=== PATIENT | female | born 1985 | race Caucasian/White ===

== ENCOUNTER 2020-10-28 09:32 | Outpatient (CLI) | payer BC, SELFPAY ==
[2020-10-28 10:49] LABS: Basophils # 0.1 10^3/uL (0.0-0.1); Basophils % 0.9 %; Eosinophils # 0.1 10^3/uL (0.0-0.8); Eosinophils % 1.6 %; Hematocrit 40.2 % (37.0-47.0); Hemoglobin 12.4 g/dL (11.5-15.3); Lymphocytes # 2.1 10^3/uL (0.8-4.8); Lymphocytes % 28.2 %; Mean Corpuscular HGB Conc 30.8 g/dL (30.0-36.0); Mean Corpuscular Hemoglobin 23.8 pg (28.0-34.0); Mean Platelet Volume 10.3 fL (7.4-10.4); Monocytes # 0.5 10^3/uL (0.2-0.9); Monocytes % 6.9 %; Neutrophils # 4.62 10^3/uL (1.8-7.7); Neutrophils % 62.1 %; Nucleated Red Blood Cells % 0 %; Platelet Count 359 10^3/cmm (130-400); Red Blood Count 5.22 10^6/uL (4.1-5.3); Red Cell Distribution Width 15.6 % (12.1-15.1); White Blood Count 7.4 10^3/uL (4.0-10.0)
--- NOTE | 2020-10-30 17:37 | ONC CON_ITS ---
Dr. Bains New Patient Note Patient: Lamar Funes Unit #: [id number]: 1985 Dicatated By: Agustín Bains M.D.Date of Visit: Oct 28, 2020 Onc MED New Patient/Consult Referring Physician: Dr. Shabbir Diamond M.D. History of Present Illness: Ms. Lamar Funes, is a 34-year-old female with no significant past medical history went to see her PMD for routine follow-up and prescription refill in June 2020, and her labs done on July 05, 2020 showed white blood count 8.8 hemoglobin 10.2 g hematocrit 32.6 platelets 366,000 and MCV 64.5 and anemia work-up showed ferritin was 13 iron saturation 51, total iron 168 TIBC 327 patient was started on oral iron and her repeat labs done on October 07, 2020 shows white blood count 7.1 hemoglobin 10.8 hematocrit 34.7 platelets 298,000 MCV 72.7 and iron saturation 50%, TIBC 275 iron 137 and ferritin was 15, patient was referred to hematology clinic for persistent iron deficiency anemia Patient denies any melena hematochezia but recently she noted fresh blood per rectum on 3 occasions. Patient said her menses are normal in amount and duration usually last 5 days sometimes 6 to 7 days. Denies any history of anemia prior to this, denies any history of EGD or colonoscopy done in the past, denies any history of blood transfusion. Patient denies any jaundice, denies any hemoptysis or hematemesis, denies any night sweats, denies any recurrent fevers, denies any weight loss, denies any chest pain or palpitation, denies any lightheadedness or dizziness. Tolerating oral iron well Past Medical History: Ms. Funes's medical history consists of benign neoplasm of skin of trunk, hypertension, and temporomandibular joint disorder. Past Surgical History: Ms. Funes's surgical/procedural history consists of myringotomy and wisdom teeth removal. Medications: Claritin 1 Tablet (of 10 mg) Oral daily, Ferrous Sulfate (325 (65 fe) mg) Tablet Oral Take as Directed, Flonase 2 [place](s) (of 50 mcg/act) Suspension Nasal daily, Singulair 1 Tablet (of 10 mg) Oral daily Allergies: No Known Allergies. Social History: Ms. Funes is single. Ms. Funes has never smoked. She has no history of drinking. Ms. Funes reports the following support systems: lives with spouse, significant other, family, or friends. Family History: There is no documented family history. Review Of Symptoms: Constitutional - Appetite is good and weight is stable. No fever, night sweats, or hot flashes. ECOG score is, ENMT - No sinus congestion/drainage. No mouth sores. No sore throat or difficulty swallowing, Endocrine - , Hematologic/Lymphatic - No abnormal bruising or bleeding, Respiratory - No shortness of breath. No cough. No pleuritic pain or hemoptysis, Cardiovascular - No angina pain. No palpitations, Gastrointestinal - No nausea or vomiting. No heartburn or acid reflux. No diarrhea or constipation. Positve for blood in stools, Genitourinary (F) - No dysuria or hematuria. No urinary frequency. No urgency or incontinence, Musculoskeletal - No joint or bone pain, Neurologic - No headache or dizziness. No numbness or tingling. No other focal neurologic symptoms, Psychiatric - No anxiety or depression. No insomnia. Vital Signs: Most recent vitals are not available for this patient. Performance Status: 0 - Fully active, able to carry on all predisease activities without restrictions. (ECOG) Physical Examination: ENMT - No mouth sores, no thrush, no jaundice, Respiratory - Lungs are clear to auscultation, Cardiovascular - Regular rate and rhythm of heart, Abdomen - Soft, bowel sounds present, Extremities - No visible edema or rash. Lab/Imaging: Most recent lab results are not available for this patient. Impression: Iron deficiency anemia etiology could be multifactorial including chronic blood loss due to menstrual periods, or GI tract or iron malabsorption. Or noncompliance Plan: Discussed with patient regarding her labs white blood count 7.4 hemoglobin 12.4 hematocrit 40.2 platelets 359,000 MCV 77 Clinically, patient is doing well, denies any new signs symptoms, her follow-up labs shows excellent response to oral iron with normalization of hemoglobin/anemia. Patient tolerating oral iron well as per patient last week her oral iron supplement was reduced to twice a week from daily, but will consider daily iron supplement and she will return to clinic in 1 month with CBC and iron studies Patient was also advised for colonoscopy/EGD as she has recent history of fresh blood per rectum on couple of occasions. Patient preferred to go to [place] for EGD/colonoscopy. , Considering her weight, patient may have underlying sleep apnea, may benefit from sleep study. Signed By: Agustín Bains M.D. <<Signature on File>>
== END 2020-10-28 09:33 | disposition home or self-care (01) ==
PROVIDERS: PCP Internal Medicine; Visit Provider Internal Medicine Hematology & Oncology
DX: D50.9 Iron deficiency anemia, unspecified (principal); K92.1 Melena
CPT/HCPCS: 36415; 85025; 99204

== ENCOUNTER 2020-12-03 09:03 | Outpatient (CLI) | payer BC, SELFPAY ==
[2020-12-03 09:29] LABS: Basophils # 0.1 10^3/uL (0.0-0.1); Basophils % 0.9 %; Eosinophils # 0.1 10^3/uL (0.0-0.8); Eosinophils % 1.1 %; Hematocrit 40.1 % (37.0-47.0); Hemoglobin 12.5 g/dL (11.5-15.3); Mean Corpuscular HGB Conc 31.2 g/dL (30.0-36.0); Mean Corpuscular Hemoglobin 24.5 pg (28.0-34.0); Mean Corpuscular Volume 78.5 fL (81-99); Mean Platelet Volume 9.4 fL (7.4-10.4); Monocytes # 0.6 10^3/uL (0.2-0.9); Monocytes % 6.1 %; Neutrophils # 6.42 10^3/uL (1.8-7.7); Neutrophils % 69.5 %; Nucleated Red Blood Cells % 0 %; Platelet Count 299 10^3/cmm (130-400); Red Blood Count 5.11 10^6/uL (4.1-5.3); Red Cell Distribution Width 14.7 % (12.1-15.1); White Blood Count 9.2 10^3/uL (4.0-10.0)
[2020-12-03 09:57] LABS: Ferritin 28 ng/mL (15-150); Iron 38 ug/dL (37-145); Percent Saturation 14.1 % (20-50); Total Iron Binding Capacity 268 mcg/dl; Unsaturated Iron Binding 230 ug/dL (112-347)
[2020-12-03 10:13] LABS: Folate Level 11.4 ng/mL (4.8-37.3)
--- NOTE | 2020-12-03 13:42 | ONC FU_ITS ---
Dr. Bains follow up note Patient: Lamar Funes Unit #: [id number]: 1985 Dicatated By: Agustín Bains M.D.Date of Visit:Dec 03, 2020 Onc Med Follow-up/Prog Note History of Present Illness: Ms. Lamar Funes, is a 34-year-old female with no significant past medical history went to see her PMD for routine follow-up and prescription refill in June 2020, and her labs done on July 05, 2020 showed white blood count 8.8 hemoglobin 10.2 g hematocrit 32.6 platelets 366,000 and MCV 64.5 and anemia work-up showed ferritin was 13 iron saturation 51, total iron 168 TIBC 327 patient was started on oral iron and her repeat labs done on October 07, 2020 shows white blood count 7.1 hemoglobin 10.8 hematocrit 34.7 platelets 298,000 MCV 72.7 and iron saturation 50%, TIBC 275 iron 137 and ferritin was 15, patient was referred to hematology clinic for persistent iron deficiency anemia Patient denies any melena hematochezia but recently she noted fresh blood per rectum on 3 occasions. Patient said her menses are normal in amount and duration usually last 5 days sometimes 6 to 7 days. Denies any history of anemia prior to this, denies any history of EGD or colonoscopy done in the past, denies any history of blood transfusion. Underwent EGD and colonoscopy on November 26, 2020 showed no esophagitis or esophageal stricture no abnormality seen in stomach and duodenum but biopsies were obtained to rule out H. pylori and atrophic gastritis as well as celiac disease and report is pending whereas colonoscopy showed no abnormality Tolerating oral iron well Came for follow-up, denies any specific complaints, no fever chills, no nausea or vomiting, no diarrhea or constipation, tolerating oral iron well as per patient she did not take her oral iron supplement for 5 days prior to her EGD/colonoscopy which was done on November 26, 2020. Otherwise tolerating oral iron well. No abdominal pain no constipation no excessive flatulence., Energetic, no palpitation or chest pain or jaundice or shortness of breath Medications: Claritin 1 Tablet (of 10 mg) Oral daily, Ferrous Sulfate (325 (65 fe) mg) Tablet Oral Take as Directed, Flonase 2 [place](s) (of 50 mcg/act) Suspension Nasal daily, Singulair 1 Tablet (of 10 mg) Oral daily Allergies: No Known Allergies. Review of Systems: Review of Systems is not available for this patient. Vital Signs: Performed on Dec 03, 2020 10:30 Height - 68 in Weight - 271.2 lbs (HIGH) BSA - 2.33 sq.m BMI - 41.24 (HIGH) Temperature - 98.1 F (LOW) Pulse - 86 /min Respiration - 16 /min BP - 150/93 mm(hg) (HIGH) O2 Sat - 100 % Pain - 0 Performance Status: 0 - Fully active, able to carry on all predisease activities without restrictions. (ECOG) Physical Examination: ENMT - No mouth sores, no thrush, no jaundice, Respiratory - Lungs are clear to auscultation, Cardiovascular - Regular rate and rhythm of heart, Abdomen - Soft, bowel sounds present, Extremities - No visible edema. Lab/Imaging: Test performed on Oct 28, 2020 09:50 WBC 7.4 10 3/uL RBC 5.22 10 6/uL HGB 12.4 g/dL HCT 40.2 % MCV 77.0 fL MCH 23.8 pg MCHC 30.8 g/dL RDW 15.6 % Platelet Count 359 10 3/cmm MPV 10.3 fL Neutrophils 4.62 10 3/uL Lymphocytes 2.1 10 3/uL Monocytes 0.5 10 3/uL Eosinophils 0.1 10 3/uL Basophils 0.1 10 3/uL Neutrophil % 62.1 % Lymphocyte % 28.2 % Monocyte % 6.9 % Eosinophil % 1.6 % Basophils % 0.9 % NRBC % 0 % Impression: Iron deficiency anemia etiology could be multifactorial including chronic blood loss due to menstrual periods, or GI tract or iron malabsorption. Or noncompliance Tolerating oral iron well EGD/colonoscopy done on November 26, 2020 showed no abnormality or source of blood loss Plan: .Discussed with patient regarding her labs white blood count 9.2 hemoglobin 12.5 hematocrit 40.1 platelets 299,000 MCV 78.5 iron saturation 14.1%, ferritin 28, folic acid 11.4, iron 38 TIBC 268 Clinically, patient is doing well, feeling more energetic, tolerating oral iron well, recently underwent EGD/colonoscopy which showed no abnormality and no evidence of bleeding, biopsies were taken to rule out H. pylori/atrophic gastritis/celiac and report is pending Follow-up labs shows normalization of anemia but persistent iron deficiency so we will increase her oral iron supplement to twice a day and then she will return to clinic in 1 month with CBC, iron studies and B12 level. Signed By: Agustín Bains M.D. <<Signature on File>>
== END 2020-12-03 09:04 | disposition home or self-care (01) ==
LOC: ONCMED 09:04
PROVIDERS: PCP Internal Medicine; Visit Provider Internal Medicine Hematology & Oncology
DX: D50.9 Iron deficiency anemia, unspecified (principal)
CPT/HCPCS: 36415; 82728; 82746; 83540; 83550; 85025; G0463

== ENCOUNTER 2021-01-09 11:48 | Outpatient (CLI) | payer BC, SELFPAY ==
[2021-01-09 12:12] LABS: Basophils # 0.1 10^3/uL (0.0-0.1); Basophils % 0.6 %; Eosinophils # 0.2 10^3/uL (0.0-0.8); Eosinophils % 1.5 %; Hematocrit 37.7 % (37.0-47.0); Mean Corpuscular HGB Conc 31.8 g/dL (30.0-36.0); Mean Corpuscular Hemoglobin 25.2 pg (28.0-34.0); Mean Corpuscular Volume 79.2 fL (81-99); Mean Platelet Volume 9.5 fL (7.4-10.4); Monocytes # 0.7 10^3/uL (0.2-0.9); Monocytes % 6.5 %; Neutrophils # 7.43 10^3/uL (1.8-7.7); Neutrophils % 72.1 %; Nucleated Red Blood Cells % 0 %; Platelet Count 290 10^3/cmm (130-400); Red Blood Count 4.76 10^6/uL (4.1-5.3); Red Cell Distribution Width 14.4 % (12.1-15.1); White Blood Count 10.3 10^3/uL (4.0-10.0)
[2021-01-09 12:50] LABS: Ferritin 28 ng/mL (15-150); Iron 35 ug/dL (37-145); Percent Saturation 14.2 % (20-50); Total Iron Binding Capacity 246 mcg/dl; Unsaturated Iron Binding 211 ug/dL (112-347)
[2021-01-09 13:06] LABS: Vitamin B12 528 pg/mL (232-1245)
--- NOTE | 2021-01-09 13:54 | ONC FU_ITS ---
Dr. Bains follow up note Patient: Lamar Funes Unit #: [id number]: 1985 Dicatated By: Agustín Bains M.D.Date of Visit:Jan 09, 2021 Onc Med Follow-up/Prog Note History of Present Illness: Ms. Lamar Funes, is a 35-year-old female with no significant past medical history went to see her PMD for routine follow-up and prescription refill in June 2020, and her labs done on July 05, 2020 showed white blood count 8.8 hemoglobin 10.2 g hematocrit 32.6 platelets 366,000 and MCV 64.5 and anemia work-up showed ferritin was 13 iron saturation 51, total iron 168 TIBC 327 patient was started on oral iron and her repeat labs done on October 07, 2020 shows white blood count 7.1 hemoglobin 10.8 hematocrit 34.7 platelets 298,000 MCV 72.7 and iron saturation 50%, TIBC 275 iron 137 and ferritin was 15, patient was referred to hematology clinic for persistent iron deficiency anemia Patient denies any melena hematochezia but recently she noted fresh blood per rectum on 3 occasions. Patient said her menses are normal in amount and duration usually last 5 days sometimes 6 to 7 days. Denies any history of anemia prior to this, denies any history of EGD or colonoscopy done in the past, denies any history of blood transfusion. Underwent EGD and colonoscopy on November 26, 2020 showed no esophagitis or esophageal stricture no abnormality seen in stomach and duodenum but biopsies were obtained to rule out H. pylori and atrophic gastritis as well as celiac disease Were negative whereas colonoscopy showed no abnormality Tolerating oral iron well Came for follow-up, denies any specific complaints, no chills, no nausea or vomiting, no diarrhea constipation, no melena or hematochezia but darker stools, tolerating oral iron well. Medications: Claritin 1 Tablet (of 10 mg) Oral daily, Ferrous Sulfate (325 (65 fe) mg) Tablet Oral Take as Directed, Flonase 2 [place](s) (of 50 mcg/act) Suspension Nasal daily, Singulair 1 Tablet (of 10 mg) Oral daily Allergies: No Known Allergies. Review of Systems: Review of Systems is not available for this patient. Vital Signs: Performed on Jan 09, 2021 13:37 Height - 68.00 in Weight - 276.8 lbs (HIGH) BSA - 2.35 sq.m BMI - 42.09 (HIGH) Temperature - 97.7 F (LOW) Pulse - 81 /min Respiration - 18 /min BP - 143/90 mm(hg) (HIGH) O2 Sat - 100 % Pain - 1 Fatigue - 0 Performance Status: 0 - Fully active, able to carry on all predisease activities without restrictions. (ECOG) Physical Examination: ENMT - No mouth sores, no thrush, no jaundice, Respiratory - Lungs are clear to auscultation, Cardiovascular - Regular rate and rhythm of heart, Abdomen - Soft, bowel sounds present, Extremities - No visible edema. Lab/Imaging: Test performed on Dec 03, 2020 09:15 Ferritin 28 ng/mL Folate, Serum 11.4 ng/mL Iron 38 mcg/dL Iron Binding Capacity (TIBC) 268 mcg/dl % Iron Saturation 14.1 % UIBC 230 mcg/dL WBC 9.2 10 3/uL RBC 5.11 10 6/uL HGB 12.5 g/dL HCT 40.1 % MCV 78.5 fL MCH 24.5 pg MCHC 31.2 g/dL RDW 14.7 % Platelet Count 299 10 3/cmm MPV 9.4 fL Neutrophils 6.42 10 3/uL Lymphocytes 2.0 10 3/uL Monocytes 0.6 10 3/uL Eosinophils 0.1 10 3/uL Basophils 0.1 10 3/uL Neutrophil % 69.5 % Lymphocyte % 22.0 % Monocyte % 6.1 % Eosinophil % 1.1 % Basophils % 0.9 % NRBC % 0 % Impression: Iron deficiency anemia etiology could be multifactorial including chronic blood loss due to menstrual periods, or GI tract or iron malabsorption. Or noncompliance Tolerating oral iron well EGD/colonoscopy done on November 26, 2020 showed no abnormality or source of blood loss Plan: Discussed with patient regarding her labs white blood count 10.3 hemoglobin 12 hematocrit 37.7 MCV 79.2 platelets 290,000 iron saturation 14.2% ferritin 28 iron 35, no change when compared with iron studies done on December 03, 2020 Clinically, patient is doing well with no new signs symptoms no evidence of gross bleeding, tolerating oral iron well except with excessive gas. Her oral iron dose was increased to twice a day last month as her follow-up labs continue to show low iron stores and the microcytosis with normal hemoglobin and as per patient she has been taking oral iron once full stomach, patient was advised to take oral iron with orange juice on empty stomach twice a day and then return to clinic in 2 months with CBC and iron studies and if it shows persistent iron deficiency then we may consider parenteral iron. Signed By: Agustín Bains M.D. <<Signature on File>>
== END 2021-01-09 11:49 | disposition home or self-care (01) ==
LOC: ONCMED 11:49
PROVIDERS: PCP Internal Medicine; Visit Provider Internal Medicine Hematology & Oncology
DX: D50.0 Iron deficiency anemia secondary to blood loss (chronic) (principal); K90.9 Intestinal malabsorption, unspecified; Z79.899 Other long term (current) drug therapy
CPT/HCPCS: 36415; 82607; 82728; 83540; 83550; 85025; G0463

== ENCOUNTER 2021-03-10 12:15 | Outpatient (CLI) | payer BC, SELFPAY ==
[2021-03-10 12:41] LABS: Basophils # 0.1 10^3/uL (0.0-0.1); Basophils % 0.9 %; Eosinophils # 0.1 10^3/uL (0.0-0.8); Eosinophils % 0.9 %; Hematocrit 40.3 % (37.0-47.0); Hemoglobin 12.8 g/dL (11.5-15.3); Lymphocytes # 2.7 10^3/uL (0.8-4.8); Lymphocytes % 20.9 %; Mean Corpuscular HGB Conc 31.8 g/dL (30.0-36.0); Mean Corpuscular Volume 81.7 fL (81-99); Mean Platelet Volume 9.7 fL (7.4-10.4); Monocytes # 0.9 10^3/uL (0.2-0.9); Monocytes % 7.1 %; Neutrophils # 8.89 10^3/uL (1.8-7.7); Neutrophils % 69.7 %; Nucleated Red Blood Cells % 0 %; Platelet Count 357 10^3/cmm (130-400); Red Blood Count 4.93 10^6/uL (4.1-5.3); Red Cell Distribution Width 13.5 % (12.1-15.1); White Blood Count 12.7 10^3/uL (4.0-10.0)
[2021-03-10 13:04] LABS: Ferritin 56 ng/mL (15-150); Iron 31 ug/dL (37-145); Percent Saturation 13.3 % (20-50); Total Iron Binding Capacity 232 mcg/dl; Unsaturated Iron Binding 201 ug/dL (112-347)
[2021-03-10 13:50] LABS: Folate Level 14.4 ng/mL (4.8-37.3)
--- NOTE | 2021-03-11 17:33 | ONC FU_ITS ---
Dr. Bains follow up note Patient: Lamar Funes Unit #: [id number]: 1985 Dicatated By: Agustín Bains M.D.Date of Visit:Mar 10, 2021 Onc Med Follow-up/Prog Note History of Present Illness: Ms. Lamar Funes, is a 35-year-old female with no significant past medical history went to see her PMD for routine follow-up and prescription refill in June 2020, and her labs done on July 05, 2020 showed white blood count 8.8 hemoglobin 10.2 g hematocrit 32.6 platelets 366,000 and MCV 64.5 and anemia work-up showed ferritin was 13 iron saturation 51, total iron 168 TIBC 327 patient was started on oral iron and her repeat labs done on October 07, 2020 shows white blood count 7.1 hemoglobin 10.8 hematocrit 34.7 platelets 298,000 MCV 72.7 and iron saturation 50%, TIBC 275 iron 137 and ferritin was 15, patient was referred to hematology clinic for persistent iron deficiency anemia Patient denies any melena hematochezia but recently she noted fresh blood per rectum on 3 occasions. Patient said her menses are normal in amount and duration usually last 5 days sometimes 6 to 7 days. Denies any history of anemia prior to this, denies any history of EGD or colonoscopy done in the past, denies any history of blood transfusion. Underwent EGD and colonoscopy on November 26, 2020 showed no esophagitis or esophageal stricture no abnormality seen in stomach and duodenum but biopsies were obtained to rule out H. pylori and atrophic gastritis as well as celiac disease and report is pending whereas colonoscopy showed no abnormality Tolerating oral iron well Came for follow-up, denies any specific complaints, no fever chills, no nausea or vomiting, no diarrhea constipation, tolerating oral iron well, no shortness of breath or palpitation Medications: Claritin 1 Tablet (of 10 mg) Oral daily, Ferrous Sulfate (325 (65 fe) mg) Tablet Oral Take as Directed, Flonase 2 [place](s) (of 50 mcg/act) Suspension Nasal daily, Singulair 1 Tablet (of 10 mg) Oral daily Allergies: No Known Allergies. Review of Systems: Review of Systems is not available for this patient. Vital Signs: Performed on Mar 10, 2021 14:07 Height - 68.00 in Weight - 277.6 lbs (HIGH) BSA - 2.35 sq.m BMI - 42.21 (HIGH) Temperature - 98.0 F (LOW) Pulse - 91 /min Respiration - 18 /min BP - 147/92 mm(hg) (HIGH) O2 Sat - 94 % (LOW) Pain - 2 Fatigue - 0 Performance Status: 0 - Fully active, able to carry on all predisease activities without restrictions. (ECOG) Physical Examination: ENMT - No mouth sores, no thrush, no jaundice, Respiratory - Lungs are clear to auscultation, Cardiovascular - Regular rate and rhythm of heart, Abdomen - Soft, bowel sounds present, Extremities - No visible edema. Lab/Imaging: Test performed on Dec 03, 2020 09:15 Ferritin 28 ng/mL Folate, Serum 11.4 ng/mL Iron 38 mcg/dL Iron Binding Capacity (TIBC) 268 mcg/dl % Iron Saturation 14.1 % UIBC 230 mcg/dL WBC 9.2 10 3/uL RBC 5.11 10 6/uL HGB 12.5 g/dL HCT 40.1 % MCV 78.5 fL MCH 24.5 pg MCHC 31.2 g/dL RDW 14.7 % Platelet Count 299 10 3/cmm MPV 9.4 fL Neutrophils 6.42 10 3/uL Lymphocytes 2.0 10 3/uL Monocytes 0.6 10 3/uL Eosinophils 0.1 10 3/uL Basophils 0.1 10 3/uL Neutrophil % 69.5 % Lymphocyte % 22.0 % Monocyte % 6.1 % Eosinophil % 1.1 % Basophils % 0.9 % NRBC % 0 % Impression: Iron deficiency anemia etiology could be multifactorial including chronic blood loss due to menstrual periods, or GI tract or iron malabsorption. Or noncompliance Tolerating oral iron well EGD/colonoscopy done on November 26, 2020 showed no abnormality or source of blood loss Plan: Discussed with patient regarding her labs white blood count 12.7 hemoglobin 12.8 g compared to 12 g previously hematocrit 40.3 platelets 357,000 CMP shows iron saturation 30.3% compared to 14 2% previously ferritin 56 compared to 28 previously and iron 31 compared to 35 previously Clinically, patient doing well, no new signs symptoms, tolerating oral iron well and her follow-up CBC shows further improvement in her hemoglobin, today it is 12.8 g compared to 12 g previously while her iron stores shows stable still on the low side of normal although ferritin has improved from 28 to 56, she will continue with oral iron and then return to clinic in 2 months with CBC and iron studies. Signed By: Agustín Bains M.D. <<Signature on File>>
== END 2021-03-10 12:16 | disposition home or self-care (01) ==
PROVIDERS: PCP Internal Medicine; Visit Provider Internal Medicine Hematology & Oncology
DX: D50.9 Iron deficiency anemia, unspecified (principal); N92.6 Irregular menstruation, unspecified; K90.9 Intestinal malabsorption, unspecified; Z79.899 Other long term (current) drug therapy
CPT/HCPCS: 82728; 82746; 83540; 83550; 85025; 99214

== ENCOUNTER 2021-05-08 12:54 | Outpatient (CLI) | payer BC, SELFPAY ==
[2021-05-08 13:50] LABS: Basophils # 0.1 10^3/uL (0.0-0.1); Basophils % 0.5 %; Eosinophils # 0.1 10^3/uL (0.0-0.8); Eosinophils % 0.7 %; Hematocrit 38.4 % (37.0-47.0); Hemoglobin 12.4 g/dL (11.5-15.3); Lymphocytes # 2.3 10^3/uL (0.8-4.8); Lymphocytes % 19.6 %; Mean Corpuscular HGB Conc 32.3 g/dL (30.0-36.0); Mean Corpuscular Hemoglobin 26.6 pg (28.0-34.0); Mean Corpuscular Volume 82.4 fL (81-99); Mean Platelet Volume 10.2 fL (7.4-10.4); Monocytes # 0.9 10^3/uL (0.2-0.9); Monocytes % 7.7 %; Neutrophils # 8.27 10^3/uL (1.8-7.7); Neutrophils % 71.2 %; Nucleated Red Blood Cells % 0 %; Platelet Count 289 10^3/cmm (130-400); Red Blood Count 4.66 10^6/uL (4.1-5.3); Red Cell Distribution Width 13.2 % (12.1-15.1); White Blood Count 11.6 10^3/uL (4.0-10.0)
[2021-05-08 15:02] LABS: Ferritin 54 ng/mL (15-150); Iron 30 ug/dL (37-145); Percent Saturation 13.6 % (20-50); Total Iron Binding Capacity 220 mcg/dl; Unsaturated Iron Binding 190 ug/dL (112-347)
--- NOTE | 2021-05-08 15:15 | ONC FU_ITS ---
Dr. Bains follow up note Patient: Lamar Funes Unit #: [id number]: 1985 Dicatated By: Agustín Bains M.D.Date of Visit:May 08, 2021 Onc Med Follow-up/Prog Note History of Present Illness: Ms. Lamar Funes, is a 35-year-old female with no significant past medical history went to see her PMD for routine follow-up and prescription refill in June 2020, and her labs done on July 05, 2020 showed white blood count 8.8 hemoglobin 10.2 g hematocrit 32.6 platelets 366,000 and MCV 64.5 and anemia work-up showed ferritin was 13 iron saturation 51, total iron 168 TIBC 327 patient was started on oral iron and her repeat labs done on October 07, 2020 shows white blood count 7.1 hemoglobin 10.8 hematocrit 34.7 platelets 298,000 MCV 72.7 and iron saturation 50%, TIBC 275 iron 137 and ferritin was 15, patient was referred to hematology clinic for persistent iron deficiency anemia Patient denies any melena hematochezia but recently she noted fresh blood per rectum on 3 occasions. Patient said her menses are normal in amount and duration usually last 5 days sometimes 6 to 7 days. Denies any history of anemia prior to this, denies any history of EGD or colonoscopy done in the past, denies any history of blood transfusion. Underwent EGD and colonoscopy on November 26, 2020 showed no esophagitis or esophageal stricture no abnormality seen in stomach and duodenum but biopsies were obtained to rule out H. pylori and atrophic gastritis as well as celiac disease and report is pending whereas colonoscopy showed no abnormality Tolerating oral iron well Came for follow-up, denies any specific complaints, no weakness or fatigue, no palpitation no fever chills, no nausea or vomiting, no diarrhea or constipation, no melena hematochezia, no hemoptysis hematemesis, no nosebleed or gum bleed, no hematuria, tolerating oral iron well Medications: Claritin 1 Tablet (of 10 mg) Oral daily, Ferrous Sulfate (325 (65 fe) mg) Tablet Oral Take as Directed, Flonase 2 [place](s) (of 50 mcg/act) Suspension Nasal daily, Singulair 1 Tablet (of 10 mg) Oral daily Allergies: No Known Allergies. Review of Systems: Review of Systems is not available for this patient. Vital Signs: Vitals are not available for this patient. Performance Status: 0 - Fully active, able to carry on all predisease activities without restrictions. (ECOG) Physical Examination: ENMT - No mouth sores, no thrush, no jaundice, Respiratory - Lungs are clear to auscultation, Cardiovascular - Regular rate and rhythm of heart, Abdomen - Soft, bowel sounds present, Extremities - No visible edema. Lab/Imaging: Test performed on Dec 03, 2020 09:15 Ferritin 28 ng/mL Folate, Serum 11.4 ng/mL Iron 38 mcg/dL Iron Binding Capacity (TIBC) 268 mcg/dl % Iron Saturation 14.1 % UIBC 230 mcg/dL WBC 9.2 10 3/uL RBC 5.11 10 6/uL HGB 12.5 g/dL HCT 40.1 % MCV 78.5 fL MCH 24.5 pg MCHC 31.2 g/dL RDW 14.7 % Platelet Count 299 10 3/cmm MPV 9.4 fL Neutrophils 6.42 10 3/uL Lymphocytes 2.0 10 3/uL Monocytes 0.6 10 3/uL Eosinophils 0.1 10 3/uL Basophils 0.1 10 3/uL Neutrophil % 69.5 % Lymphocyte % 22.0 % Monocyte % 6.1 % Eosinophil % 1.1 % Basophils % 0.9 % NRBC % 0 % Impression: Iron deficiency anemia etiology could be multifactorial including chronic blood loss due to menstrual periods, or GI tract or iron malabsorption. Or noncompliance Tolerating oral iron well EGD/colonoscopy done on November 26, 2020 showed no abnormality or source of blood loss Plan: Discussed with patient regarding her labs white blood count 11.6 hemoglobin 12.4 g hematocrit 38.4 platelets 289,000 MCV 82.4 iron studies shows iron saturation 13.6% and iron 30, ferritin 54 compared to 13.3%/31/56 previously Clinically, patient doing well with no new signs symptoms her follow-up labs shows hemoglobin in normal range and iron stores on the lower side of normal, patient is on oral iron supplement 2 tablets a day, she was advised to continue with same,, there is a possibility she may have some element of malabsorption, so if there is a drop in her hemoglobin and no further improvement in her iron stores, will consider parenteral iron She return to clinic in 2 months with CBC and iron studies Signed By: Agustín Bains M.D. <<Signature on File>>
== END 2021-05-08 12:55 | disposition home or self-care (01) ==
LOC: ONCMED 12:59
PROVIDERS: PCP Internal Medicine; Visit Provider Internal Medicine Hematology & Oncology
DX: D50.0 Iron deficiency anemia secondary to blood loss (chronic) (principal); N92.6 Irregular menstruation, unspecified; Z79.899 Other long term (current) drug therapy
CPT/HCPCS: 36415; 82728; 83540; 83550; 85025; 99214

== ENCOUNTER 2021-07-24 14:17 | Outpatient (CLI) | payer BC, SELFPAY ==
[2021-07-24 15:17] LABS: Basophils # 0.1 10^3/uL (0.0-0.1); Basophils % 0.5 %; Eosinophils # 0.2 10^3/uL (0.0-0.8); Eosinophils % 1.4 %; Hematocrit 38.1 % (37.0-47.0); Hemoglobin 12.1 g/dL (11.5-15.3); Lymphocytes # 2.6 10^3/uL (0.8-4.8); Lymphocytes % 22.9 %; Mean Corpuscular HGB Conc 31.8 g/dL (30.0-36.0); Mean Corpuscular Hemoglobin 26.9 pg (28.0-34.0); Mean Corpuscular Volume 84.7 fl (81-99); Mean Platelet Volume 10.1 fL (7.4-10.4); Monocytes # 0.8 10^3/uL (0.2-0.9); Monocytes % 6.9 %; Neutrophils # 7.66 10^3/uL (1.8-7.7); Neutrophils % 67.9 %; Nucleated Red Blood Cells % 0 %; Platelet Count 298 10^3/cmm (130-400); Red Cell Distribution Width 13.1 % (12.1-15.1); White Blood Count 11.3 10^3/uL (4.0-10.0)
[2021-07-24 15:52] LABS: Ferritin 58 ng/mL (15-150); Iron 34 ug/dL (37-145); Percent Saturation 15.5 % (20-50); Total Iron Binding Capacity 219 mcg/dl; Unsaturated Iron Binding 185 ug/dL (112-347)
--- NOTE | 2021-07-25 13:50 | ONC FU_ITS ---
Dr. Bains follow up note Patient: Lamar Funes Unit #: [id number]: [id number] Dicatated By: Agustín Bains M.D.Date of Visit:Jul 24, 2021 Onc Med Follow-up/Prog Note History of Present Illness: Ms. Lamar Funes, is a 35-year-old female with no significant past medical history went to see her PMD for routine follow-up and prescription refill in June 2020, and her labs done on July 05, 2020 showed white blood count 8.8 hemoglobin 10.2 g hematocrit 32.6 platelets 366,000 and MCV 64.5 and anemia work-up showed ferritin was 13 iron saturation 51, total iron 168 TIBC 327 patient was started on oral iron and her repeat labs done on October 07, 2020 shows white blood count 7.1 hemoglobin 10.8 hematocrit 34.7 platelets 298,000 MCV 72.7 and iron saturation 50%, TIBC 275 iron 137 and ferritin was 15, patient was referred to hematology clinic for persistent iron deficiency anemia Patient denies any melena hematochezia but recently she noted fresh blood per rectum on 3 occasions. Patient said her menses are normal in amount and duration usually last 5 days sometimes 6 to 7 days. Denies any history of anemia prior to this, denies any history of EGD or colonoscopy done in the past, denies any history of blood transfusion. Underwent EGD and colonoscopy on November 26, 2020 showed no esophagitis or esophageal stricture no abnormality seen in stomach and duodenum but biopsies were obtained to rule out H. pylori and atrophic gastritis as well as celiac disease and report is pending whereas colonoscopy showed no abnormality Tolerating oral iron well Came for follow-up, denies any specific complaints, no fever chills, no nausea or vomiting, no diarrhea or constipation, tolerating oral iron well, patient says she is compliant with her iron supplements. Medications: Claritin 1 Tablet (of 10 mg) Oral daily, Ferrous Sulfate (325 (65 fe) mg) Tablet Oral Take as Directed, Flonase 2 [place](s) (of 50 mcg/act) Suspension Nasal daily, Singulair 1 Tablet (of 10 mg) Oral daily Allergies: No Known Allergies. Review of Systems: Review of Systems is not available for this patient. Vital Signs: Performed on Jul 24, 2021 16:06 Height - 68.00 in Weight - 286.6 lbs (HIGH) BSA - 2.38 sq.m BMI - 43.58 (HIGH) Temperature - 97.4 F (LOW) Pulse - 94 /min Respiration - 18 /min BP - 140/91 mm(hg) O2 Sat - 99 % Pain - 2 Fatigue - 0 Performance Status: 0 - Fully active, able to carry on all predisease activities without restrictions. (ECOG) Physical Examination: ENMT - No mouth sores, no thrush, no jaundice, Respiratory - Lungs are clear to auscultation, Cardiovascular - Regular rate and rhythm of heart, Abdomen - Soft, bowel sounds present, Extremities - No visible edema. Lab/Imaging: Most recent lab results are not available for this patient. Impression: Iron deficiency anemia etiology could be multifactorial including chronic blood loss due to menstrual periods, or GI tract or iron malabsorption. Or noncompliance Tolerating oral iron well EGD/colonoscopy done on November 26, 2020 showed no abnormality or source of blood loss Plan: Discussed with patient regarding her labs white blood count 11.3 hemoglobin 12.1 hematocrit 38.1 platelets 298,000 iron saturation 15.5% ferritin 58 compared to 54 previously iron 34 Clinically, patient is doing well with no new signs symptoms, will continue with oral iron, her hemoglobin in normal range iron studies shows stable, with some improvement in her iron stores. Return to clinic in 6 weeks with CBC and iron studies Signed By: Agustín Bains M.D. <<Signature on File>>
== END 2021-07-24 14:18 | disposition home or self-care (01) ==
LOC: ONCMED 14:20
PROVIDERS: PCP Internal Medicine; Visit Provider Internal Medicine Hematology & Oncology
DX: D50.9 Iron deficiency anemia, unspecified (principal); Z79.899 Other long term (current) drug therapy
CPT/HCPCS: 36415; 82728; 83540; 83550; 85025; 99214

== ENCOUNTER 2021-09-11 16:59 | Outpatient (CLI) | payer BC, SELFPAY | END 2021-09-11 17:00 | disposition home or self-care (01) | LOC: SLEEP 16:59 | PROVIDERS: PCP Internal Medicine; Visit Provider Internal Medicine | DX: G47.33 Obstructive sleep apnea (adult) (pediatric) (principal) | CPT/HCPCS: 95810 ==

== ENCOUNTER 2021-09-26 07:54 | Outpatient (CLI) | payer BC, SELFPAY ==
[2021-09-26 08:33] LABS: Basophils # 0.1 10^3/uL (0.0-0.1); Eosinophils # 0.2 10^3/uL (0.0-0.8); Eosinophils % 1.6 %; Hematocrit 38.5 % (37.0-47.0); Hemoglobin 12.6 g/dL (11.5-15.3); Lymphocytes # 1.6 10^3/uL (0.8-4.8); Lymphocytes % 17.9 %; Mean Corpuscular HGB Conc 32.7 g/dL (30.0-36.0); Mean Corpuscular Volume 82.6 fl (81-99); Mean Platelet Volume 9.5 fL (7.4-10.4); Monocytes # 0.8 10^3/uL (0.2-0.9); Monocytes % 8.3 %; Neutrophils # 6.48 10^3/uL (1.8-7.7); Neutrophils % 70.9 %; Nucleated Red Blood Cells % 0 %; Platelet Count 339 10^3/cmm (130-400); Red Blood Count 4.66 10^6/uL (4.1-5.3); Red Cell Distribution Width 13.2 % (12.1-15.1); White Blood Count 9.2 10^3/uL (4.0-10.0)
[2021-09-26 08:54] LABS: Ferritin 88 ng/mL (15-150); Iron 41 ug/dL (37-145); Percent Saturation 18.1 % (20-50); Total Iron Binding Capacity 226 mcg/dl; Unsaturated Iron Binding 185 ug/dL (112-347)
--- NOTE | 2021-09-28 18:29 | ONC FU_ITS ---
Dr. Bains follow up note Patient: Lamar Funes Unit #: [id number]: [id number] Dicatated By: Agustín Bains M.D.Date of Visit:Sep 26, 2021 Onc Med Follow-up/Prog Note History of Present Illness: Ms. Lamar Funes, is a 35-year-old female with no significant past medical history went to see her PMD for routine follow-up and prescription refill in June 2020, and her labs done on July 05, 2020 showed white blood count 8.8 hemoglobin 10.2 g hematocrit 32.6 platelets 366,000 and MCV 64.5 and anemia work-up showed ferritin was 13 iron saturation 51, total iron 168 TIBC 327 patient was started on oral iron and her repeat labs done on October 07, 2020 shows white blood count 7.1 hemoglobin 10.8 hematocrit 34.7 platelets 298,000 MCV 72.7 and iron saturation 50%, TIBC 275 iron 137 and ferritin was 15, patient was referred to hematology clinic for persistent iron deficiency anemia Patient denies any melena hematochezia but recently she noted fresh blood per rectum on 3 occasions. Patient said her menses are normal in amount and duration usually last 5 days sometimes 6 to 7 days. Denies any history of anemia prior to this, denies any history of EGD or colonoscopy done in the past, denies any history of blood transfusion. Underwent EGD and colonoscopy on November 26, 2020 showed no esophagitis or esophageal stricture no abnormality seen in stomach and duodenum but biopsies were obtained to rule out H. pylori and atrophic gastritis as well as celiac disease and report is pending whereas colonoscopy showed no abnormality Tolerating oral iron well Came for follow-up, denies any specific complaints, no fever chills, no nausea or vomiting, no diarrhea or constipation, no melena hematochezia, no hemoptysis or hematemesis, menses are regular. No shortness of breath, no palpitation, tolerating oral iron well Medications: Claritin 1 Tablet (of 10 mg) Oral daily, Ferrous Sulfate (325 (65 fe) mg) Tablet Oral Take as Directed, Flonase 2 [place](s) (of 50 mcg/act) Suspension Nasal daily, Singulair 1 Tablet (of 10 mg) Oral daily Allergies: No Known Allergies. Review of Systems: Review of Systems is not available for this patient. Vital Signs: Performed on Sep 26, 2021 09:34 Height - 68.00 in Weight - 279.6 lbs (LOW) BSA - 2.36 sq.m BMI - 42.51 (HIGH) Temperature - 98.0 F (LOW) Pulse - 83 /min Respiration - 18 /min BP - 126/84 mm(hg) O2 Sat - 98 % Pain - 0 Fatigue - 0 Performance Status: 0 - Fully active, able to carry on all predisease activities without restrictions. (ECOG) Physical Examination: ENMT - No mouth sores, no thrush, no jaundice, Respiratory - Lungs are clear to auscultation, Cardiovascular - Regular rate and rhythm of heart, Abdomen - Soft, bowel sounds present, Extremities - No visible edema. Lab/Imaging: Most recent lab results are not available for this patient. Impression: Iron deficiency anemia etiology could be multifactorial including chronic blood loss due to menstrual periods, or GI tract or iron malabsorption. Or noncompliance Tolerating oral iron well EGD/colonoscopy done on November 26, 2020 showed no abnormality or source of blood loss Plan: Discussed with patient regarding her labs white blood count 9.2 hemoglobin 12.6 g compared to 12.1 previously hematocrit 38.5 platelets 339,000 iron studies shows iron saturation 18.1% ferritin 88 compared to 58 previously iron 41 TIBC 226 Clinically, patient is doing well with no new signs symptom suggestive of gross bleeding except liver masses, tolerating oral iron well, follow-up labs shows improvement in her iron deficiency anemia and iron stores, will continue with oral supplement and she will return to clinic in 3 months with CBC and iron studies. Signed By: Agustín Bains M.D. <<Signature on File>>
== END 2021-09-26 07:55 | disposition home or self-care (01) ==
LOC: ONCMED 07:56
PROVIDERS: PCP Internal Medicine; Visit Provider Internal Medicine Hematology & Oncology
DX: D50.0 Iron deficiency anemia secondary to blood loss (chronic) (principal); N92.0 Excessive and frequent menstruation with regular cycle; Z79.899 Other long term (current) drug therapy
CPT/HCPCS: 36415; 82728; 83540; 83550; 85025; 99214

== ENCOUNTER 2021-11-05 20:00 | Outpatient (CLI) | payer BC, SELFPAY | END 2021-11-05 20:01 | disposition home or self-care (01) | LOC: SLEEP 11-06 07:40 | PROVIDERS: PCP Internal Medicine; Visit Provider Internal Medicine | DX: G47.31 Primary central sleep apnea (principal) | CPT/HCPCS: 95811 ==

== ENCOUNTER 2021-12-29 14:29 | Outpatient (CLI) | payer BC, SELFPAY ==
[2021-12-29 15:13] LABS: Basophils # 0.1 10^3/uL (0.0-0.1); Basophils % 0.8 %; Eosinophils # 0.3 10^3/uL (0.0-0.8); Eosinophils % 2.3 %; Hematocrit 39.9 % (37.0-47.0); Hemoglobin 12.7 g/dL (11.5-15.3); Lymphocytes # 2.5 10^3/uL (0.8-4.8); Lymphocytes % 20.6 %; Mean Corpuscular HGB Conc 31.8 g/dL (30.0-36.0); Mean Corpuscular Hemoglobin 26.8 pg (28.0-34.0); Mean Corpuscular Volume 84.4 fl (81-99); Mean Platelet Volume 9.7 fL (7.4-10.4); Monocytes # 0.7 10^3/uL (0.2-0.9); Monocytes % 5.5 %; Neutrophils # 8.42 10^3/uL (1.8-7.7); Neutrophils % 70.3 %; Nucleated Red Blood Cells % 0 %; Platelet Count 322 10^3/cmm (130-400); Red Blood Count 4.73 10^6/uL (4.1-5.3); Red Cell Distribution Width 13.2 % (12.1-15.1)
[2021-12-29 16:05] LABS: Ferritin 74 ng/mL (15-150); Iron 30 ug/dL (37-145); Percent Saturation 13.5 % (20-50); Total Iron Binding Capacity 222 mcg/dl; Unsaturated Iron Binding 192 ug/dL (112-347)
== END 2021-12-29 14:30 | disposition home or self-care (01) ==
LOC: ONCMED 14:32
PROVIDERS: Nurse Practitioner Family; PCP Internal Medicine; Visit Provider Internal Medicine Hematology & Oncology
DX: D50.9 Iron deficiency anemia, unspecified (principal); Z79.899 Other long term (current) drug therapy
CPT/HCPCS: 36415; 82728; 83540; 83550; 85025; 99214

== ENCOUNTER 2022-06-02 12:31 | Oncology outpatient (recurring) (ONCR) | payer BC, SELFPAY ==
[2022-06-02 14:54] LABS: Basophils % 0.6 %; Eosinophils # 0.2 10^3/uL (0.0-0.8); Eosinophils % 2.3 %; Hematocrit 36.6 % (37.0-47.0); Hemoglobin 11.9 g/dL (11.5-15.3); Lymphocytes # 1.6 10^3/uL (0.8-4.8); Mean Corpuscular HGB Conc 32.5 g/dL (30.0-36.0); Mean Corpuscular Hemoglobin 26.3 pg (28.0-34.0); Mean Platelet Volume 10.4 fL (7.4-10.4); Monocytes # 0.6 10^3/uL (0.2-0.9); Monocytes % 9.7 %; Neutrophils # 4.08 10^3/uL (1.8-7.7); Neutrophils % 62.1 %; Nucleated Red Blood Cells % 0 %; Platelet Count 283 10^3/cmm (130-400); Red Blood Count 4.52 10^6/uL (4.1-5.3); Red Cell Distribution Width 13.9 % (12.1-15.1); White Blood Count 6.6 10^3/uL (4.0-10.0)
[2022-06-02 15:34] LABS: Ferritin 78 ng/mL (15-150); Iron 48 ug/dL (37-145); Percent Saturation 20.4 % (20-50); Total Iron Binding Capacity 235 mcg/dl; Unsaturated Iron Binding 187 ug/dL (112-347)
== END 2022-06-14 23:59 | disposition home or self-care (01) ==
PROVIDERS: PCP Internal Medicine; Referring Provider Internal Medicine; Visit Provider Nurse Practitioner Family
DX: D50.9 Iron deficiency anemia, unspecified (principal); Z79.899 Other long term (current) drug therapy
CPT/HCPCS: 82728; 83540; 83550; 85025

== ENCOUNTER 2022-10-15 11:58 | Oncology outpatient (recurring) (ONCR) | payer BC, SELFPAY ==
[2022-10-15 12:22] LABS: Basophils # 0.1 10^3/uL (0.0-0.1); Basophils % 0.9 %; Eosinophils # 0.2 10^3/uL (0.0-0.8); Eosinophils % 2.2 %; Hemoglobin 12.4 g/dL (11.5-15.3); Lymphocytes % 21.8 %; Mean Corpuscular HGB Conc 31.8 g/dL (30.0-36.0); Mean Corpuscular Hemoglobin 26.6 pg (28.0-34.0); Mean Corpuscular Volume 83.5 fl (81-99); Mean Platelet Volume 9.8 fL (7.4-10.4); Monocytes # 0.7 10^3/uL (0.2-0.9); Monocytes % 7.9 %; Neutrophils # 6.09 10^3/uL (1.8-7.7); Neutrophils % 66.8 %; Nucleated Red Blood Cells % 0 %; Platelet Count 331 10^3/cmm (130-400); Red Blood Count 4.67 10^6/uL (4.1-5.3); Red Cell Distribution Width 13.3 % (12.1-15.1); White Blood Count 9.1 10^3/uL (4.0-10.0)
[2022-10-15 12:59] LABS: Ferritin 75 ng/mL (15-150); Iron 50 ug/dL (37-145); Percent Saturation 22.1 % (20-50); Total Iron Binding Capacity 226 mcg/dl; Unsaturated Iron Binding 176 ug/dL (112-347)
== END 2022-11-14 23:59 | disposition home or self-care (01) ==
LOC: ONCMED 11:58
PROVIDERS: PCP Internal Medicine; Referring Provider Internal Medicine; Visit Provider Nurse Practitioner Family
DX: D50.9 Iron deficiency anemia, unspecified (principal); Z79.899 Other long term (current) drug therapy
CPT/HCPCS: 82728; 83540; 83550; 85025